=== PATIENT | female | born 1945 | race Asian ===

== ENCOUNTER 2018-01-20 17:49 | Inpatient (IN) | payer OTHER ==
[~2018-01-20] VITALS: Ht 152.4 cm; Wt 42.6 kg
[~2018-01-20 17:49] MED LIST: ASPI81CT89 PO; ATOR20TA PO; COZ50 PO; ESOM40EC PO; PIOG45TA PO; [UNRECOGNIZED DRUG - CODE] PO
[2018-01-20 18:12] VITALS: BP 117/81
--- NOTE | 2018-01-20 18:41 | NUR ---
PATIENT WHEELCHAIR ASSISTED TO BED 3.
--- NOTE | 2018-01-20 18:52 | NUR ---
PT. BIB SON W /C/O WEAKNESS X 2 DAYS AND VOMITING. PT. IS HAS EYES CLOSED BUT OPEN TO VOICE , RR EVEN AND UNLABORED. SON STATES " MY MOM SAYS SHE FEELS WEAK AND SHE HAS BEEN VOMITING X 2 DAYS BUT TODAY SHE VOMITED 4-5 TIMES". PT. HAS SKIN WARM AND DRY TO TOUCH, PT. HAS PUPILS EQUAL ROUND AND REACTIVE BILATERALLY 2MM. PT. DENIES DIAHRRHEA, PT. HAS 5/10 PAIN IN BILATERAL LEGS THAT IS NON RADIATING SINCE 2 WEEKS AGO AND DESCRIBED "DISCOMFORT". PT. HAS ESRF AND NOT IN DIALYSIS AND PER SON " HAS 33% KIDNEY FUNCTION. PT. IS AAOX2. PT. DENIES ANY ALLERGIES. DENIES CHEST PAIN, DENIES SOB, DENIES COUGH AT THIS TIME. ER MD NOTIFIED. WILL CONTINUE TO MONITOR.
--- NOTE | 2018-01-20 19:20 | NUR ---
Pt report given to HU CARTAGENA . Transfer of care at this time.
[2018-01-20 19:52] LABS: BASOPHILS % (AUTO) 0.2 % (0.0-2.0); EOSINOPHILS % (AUTO) 0.1 % (0.0-4.0); HEMATOCRIT 30.1 % (36-48); LYMPHOCYTES # (AUTO) 0.7 K/uL (2.5-16.5); LYMPHOCYTES % (AUTO) 6.6 % (20.5-51.1); MEAN CORPUSCULAR HEMOGLOBIN 30 pg (27-31); MEAN CORPUSCULAR HGB CONC 33 g/dL (33-37); MEAN CORPUSCULAR VOLUME 90.7 fL (80-94); MONOCYTES # (AUTO) 0.4 K/uL (0.8-1.0); MONOCYTES % (AUTO) 3.4 % (1.7-9.3); NEUTROPHILS # (AUTO) 9.9 K/uL (1.8-7.7); PLATELET COUNT (AUTO) 320 K/uL (140-450); RED BLOOD CELL COUNT(AUTO) 3.32 MIL/uL (4.20-5.40); RED CELL DISTRIBUTION WIDTH 13.5 % (11.6-13.7)
--- NOTE | 2018-01-20 19:55 | NUR ---
Dr. Gamez evaluating patient at bedside.
[2018-01-20 20:11] LABS: ALBUMIN 4.7 g/dL (3.4-5.0); ANION GAP 20.9 (8-16); ASPARTATE AMINOTRANSFERASE 15 U/L (15-37); CARBON DIOXIDE 21.9 mmol/L (21-32); CHLORIDE 94 mmol/L (98-107); CREATININE 1.5 mg/dL (0.6-1.3); GLUCOSE 257 mg/dL (74-106); POTASSIUM 3.8 mmol/L (3.5-5.1); SODIUM SERUM 133 mmol/L (136-145); TOTAL BILIRUBIN 0.4 mg/dL (0.0-1.0); UREA NITROGEN, BLOOD 35 mg/dL (7-18)
[2018-01-20 20:16] LABS: PROTHROMBIN TIME 10.3 secs (10.8-13.4)
[2018-01-20 20:27] LABS: NEUTROPHILS % (AUTO) 89.7 % (42.2-75.2)
[2018-01-20 20:29] LABS: AMYLASE 78 U/L (25-115); LIPASE 413 U/L (73-393)
[2018-01-20] MEDS ORDERED: NACL 0.9% 1,000 ML IV ONE (20:50)
[2018-01-20] MEDS ORDERED: PIPERACILLIN/TAZOBACTAM 3.375 GM in DEXTROSE 5% 50 ML IV ONE (20:55)
[2018-01-20 21:30] LABS: APPEARANCE,URINE CLEAR (CLEAR); BILIRUBIN,URINE NEGATIVE (NEGATIVE); BLOOD, URINE NEGATIVE (NEGATIVE); COLOR,URINE YELLOW (YELLOW); LEUKOCYTE ESTERASE ,URINE TRACE (NEGATIVE); NITRITE, URINE NEGATIVE (NEGATIVE); PH,URINE 5.5 (5.0-9.0); UGLUCOSE 2+ (NEGATIVE)
[2018-01-20] MEDS ORDERED: PIPERACILLIN/TAZOBACTAM 3.375 GM VIAL IV ONE (21:34)
[2018-01-20 22:10] LABS: RBC,URINE 0-5 (RARE) /HPF (0-5)
--- NOTE | 2018-01-20 22:16 | NUR ---
PT TAKEN TO CT
[2018-01-21] MEDS ORDERED: NACL 0.9% 1,000 ML IV ONE
--- NOTE | 2018-01-21 00:10 | NUR ---
Dr. Gamez re-evaluating patient at bedside.
[2018-01-21] MEDS ORDERED: HYDROcodone/APAP 7.5/325 MG 1 TAB PO PRN (01:05)
[2018-01-21] MEDS ORDERED: MECL-272 PO (01:05)
[2018-01-21] MEDS ORDERED: FURO-570 PO (01:05)
[2018-01-21] MEDS ORDERED: TRAM50TA1 PO (01:05)
[2018-01-21] MEDS ORDERED: DOCUSATE SODIUM 100 MG GELCAP PO PRN (01:05)
[2018-01-21] MEDS ORDERED: ONDA8ODT2 PO (01:05)
[2018-01-21] MEDS ORDERED: ACETAMINOPHEN 325 MG TAB PO PRN (01:05)
--- NOTE | 2018-01-21 01:15 | NUR ---
Dr. Johnson evaluating patient
[2018-01-21 01:28] LABS: BARBITURATE, URINE NEG. ng/ml (NEG <=200); BENZODIAZEPINE, URINE NEG. ng/mL (NEG <=200); CANNABINOID, URINE NEG. ng/mL (NEG <=50); COCAINE, URINE NEG. ng/mL (NEG <=300); OPIATE, URINE NEG. ng/mL (NEG <=2000); PHENCYCLIDINE SCREEN,URINE NEG. ng/mL (NEG <=25)
[2018-01-21 01:41] LABS: CHOL/HDL RATIO 3.6 (1-4.5); FREE T4 (FREE THYROXINE) 1.62 ng/dL (0.76-1.46); PHOSPHORUS 3.9 mg/dL (2.5-4.9); THYROID STIMULATING HORMONE 1.1 uIU/mL (0.34-3.74)
--- NOTE | 2018-01-21 01:41 | NUR ---
Patient will be admitted to care of DR. WILSON. Admited to TELE. Will go to room 121-A. Belongings list completed. Report to PIERCE.
[2018-01-21] MEDS: NACL 0.9% 1,000 ML IV SCH ×2 (01:44→12:30)
[2018-01-21 01:50] VITALS: BP 130/68
[2018-01-21 01:51] LABS: MAGNESIUM 0.9 mg/dL (1.8-2.4)
--- NOTE | 2018-01-21 01:55 | NUR ---
ADMITTED PATIENT TO THE TELE UNIT, PATIENT AWAKE ALERT, SPEAKS AZERI ONLY, HARDBOARD PRESS OPERATOR [id number] USED FOR ADMISSION ASSESSMENT. IV PATENT AND INTACT, INFUSING NS AT 100ML/HR, TELE MONITOR PLACED ON PATIENT, PLAN OF CARE DISCUSSED, PATIENT VERBALIZED UNDERSTANDING, CALL LIGHT WITHIN REACH, SAFETY MEASURE ENSURED, WILL CONTINUE TO MONITOR.
[2018-01-21] MEDS ORDERED: MECLIZINE 25 MG TAB PO PRN (02:35)
[2018-01-21] MEDS ORDERED: DEXTROSE 50% 50 ML SYR IVP PRN (02:45)
[2018-01-21] MEDS ORDERED: MAG SULF 2000 MG/WATER PREMIX 50 ML IV SCH (03:00)
[2018-01-21] MEDS ORDERED: PNEUMOCOCCAL VACCINE 23 MCG/0.5 ML VIAL IMVAC PRN (03:05)
[2018-01-21 04:00] VITALS: BP 131/69
--- NOTE | 2018-01-21 04:38 | NUR ---
PATIENT IS SLEEPING, NO S/S OF DISTRESS NOTED, RESPIRATION EVEN AND UNLABORED, ON ROOM AIR. CALL LIGHT WITHIN REACH, SAFETY MEASURE ENSURED, WILL CONTINUE TO MONITOR.
[2018-01-21] MEDS: BLOOD GLUCOSE MONITORING 1 DEV DEV FS SCH ×4 (06:05→20:47)
[2018-01-21 06:25] LABS: BASOPHILS % (AUTO) 0.2 % (0.0-2.0); EOSINOPHILS % (AUTO) 0.1 % (0.0-4.0); HEMATOCRIT 24.8 % (36-48); HEMOGLOBIN 8.3 g/dL (12.0-16.0); LYMPHOCYTES # (AUTO) 0.8 K/uL (2.5-16.5); LYMPHOCYTES % (AUTO) 9.7 % (20.5-51.1); MEAN CORPUSCULAR HEMOGLOBIN 31 pg (27-31); MEAN CORPUSCULAR HGB CONC 34 g/dL (33-37); MONOCYTES # (AUTO) 0.4 K/uL (0.8-1.0); MONOCYTES % (AUTO) 5.7 % (1.7-9.3); NEUTROPHILS # (AUTO) 6.5 K/uL (1.8-7.7); NEUTROPHILS % (AUTO) 84.3 % (42.2-75.2); PLATELET COUNT (AUTO) 256 K/uL (140-450); RED BLOOD CELL COUNT(AUTO) 2.73 MIL/uL (4.20-5.40); RED CELL DISTRIBUTION WIDTH 13.4 % (11.6-13.7); WHITE BLOOD COUNT (AUTO) 7.7 K/uL (4.8-10.8)
[2018-01-21 06:58] LABS: ANION GAP 16.6 (8-16); CARBON DIOXIDE 22.3 mmol/L (21-32); CHLORIDE 101 mmol/L (98-107); CREATININE 1.4 mg/dL (0.6-1.3); GLUCOSE 192 mg/dL (74-106); POTASSIUM 3.9 mmol/L (3.5-5.1); SODIUM SERUM 136 mmol/L (136-145); UREA NITROGEN, BLOOD 27 mg/dL (7-18)
[2018-01-21 07:00] LABS: MAGNESIUM 2.2 mg/dL (1.8-2.4); PHOSPHORUS 3.6 mg/dL (2.5-4.9)
--- NOTE | 2018-01-21 07:27 | NUR ---
ENDORSED PLAN OF CARE TO DAY SHIFT, PATIENT RESTING IN BED, IN STABLE CONDITION.
--- NOTE | 2018-01-21 07:30 | NUR ---
PATIENT AWAKE, ALERT. RESPIRATION EVEN, UNLABOR ON ROOM AIR. SKIN DRY AND WARM. IV PATENT AND INTACT. DENIED PAIN, AND DIZZINESS AT THIS TIME. NO DISTRESS NOTED. PLAN OF CARE WAS DISCUSSED WITH PATIENT. BED AT LOW POSITION, SIDE RAILS UP. CALL LIGHT WITHIN REACH
[2018-01-21] MEDS ORDERED: METOCLOPRAMIDE 10 MG/2 ML INJ VIAL IVP PRN (07:40)
[2018-01-21 08:00] VITALS: BP 123/64
[2018-01-21] MEDS ORDERED: metFORMIN 500 MG TAB PO SCH (08:00)
[2018-01-21] MEDS ORDERED: METOCLOPRAMIDE 10 MG/2 ML INJ VIAL IVP SCH (09:21)
[2018-01-21] MEDS: ASPIRIN 81 MG TAB.CHEW PO SCH (09:33)
[2018-01-21] MEDS: FUROSEMIDE 40 MG TAB PO SCH (09:33)
[2018-01-21] MEDS: ATORVASTATIN 20 MG TAB PO SCH (09:33)
[2018-01-21] MEDS: LOSARTAN 50 MG TAB PO SCH (09:34)
--- NOTE | 2018-01-21 10:29 | NUR ---
PATIENT HAS BEEN SCREENED AND CATEGORIZED HIGH NUTRITION RISK. PATIENT WILL BE SEEN WITHIN 1-2 DAYS OF ADMISSION. 01/21/18 01/22/[address]
--- NOTE | 2018-01-21 11:30 | NUR ---
PATIENT AWAKE, ALERT. RESPIRATION EVEN, UNLABOR ON ROOM AIR. VS IS STABLE. DENIED PAIN, DIZZINESS, N/V. NO DISTRES NOTED AT THIS TIME. CALL LIGHT WITHIN REACH
[2018-01-21 12:00] VITALS: BP 111/55
[2018-01-21] MEDS: METOCLOPRAMIDE 10 MG/2 ML INJ VIAL IVP SCH ×2 (12:30→20:49)
[2018-01-21] MEDS: INSULIN LISPRO SLIDING SCALE 100 UNITS/ML VIAL SUBQ PRN ×2 (12:35→21:12)
--- NOTE | 2018-01-21 14:16 | NUR ---
IV WAS ACCIDENTALLY PULLED OUT PER PATIENT. CATHETER INTACT, BLEEDING WAS CONTROLLED.
--- NOTE | 2018-01-21 14:43 | NUR ---
NEW IV WAS INSERTED TO THE RIGHT FOREARM. PATIENT TOLERATED WELL
[2018-01-21 16:00] VITALS: BP 114/56
--- NOTE | 2018-01-21 16:00 | NUR ---
PATIENT WAS SLEEPING COMFORTABLY, EASILY AROUSABLE BY NAME. RESPIRATION EVEN, UNLABOR ON ROOM AIR. DENIED PAIN, DIZZINESS AT THIS TIME. VS IS STABLE. NO DISTRESS NOTED. CALL LIGHT WITHIN REACH
--- NOTE | 2018-01-21 18:15 | NUR ---
PATIENT AWAKE, ALERT, EATING DINNER COMFORTABLY. RESPIRATION EVEN, UNLABOR ON ROOM AIR. IV PATENT AND INTACT. DENIED PAIN, SOB AT THIS TIME. NO DISTRESS NOTED. CALL LIGHT WITHIN REACH
--- NOTE | 2018-01-21 19:20 | NUR ---
ENDORSEMENT GIVEN TO THE CEMENT KILN OPERATOR NURSE. PATIENT IS STABLE AT THIS TIME
--- NOTE | 2018-01-21 19:21 | NUR ---
REPORT RECEIVED FROM AM NURSE. PT IN STABLE CONDITION. INTRODUCED MYSELF TO PT. AAOX4. LUNG SOUNDS CLEAR BILATERALLY. HEART SOUNDS S1 S2 NORMAL. BOWEL SOUNDS ACTIVE X4 QUADRANTS. CAP REFILL < 3S. SKIN INTACT, DRY AND WARM. IV SITE PATENT AND INTACT. PT NOT IN ANY ACUTE DISTRESS. WILL CONTINUE TO MONITOR.
[2018-01-21 20:00] VITALS: BP 113/47
--- NOTE | 2018-01-21 20:00 | NUR ---
PM MEDS GIVEN. PT TOLERATED WELL.
--- NOTE | 2018-01-21 22:30 | NUR ---
USED BLUE PHONE FOR PLANT TECHNICIAN. PT ASKED ABOUT THE IV BAGS THAT WERE HANGING. PT WAS INFORMED THAT THOSE IV BAGS WERE NO LONGER NEEDED FOR TODAY AND WILL HAVE ANOTHER DOSE TOMORROW.
--- NOTE | 2018-01-22 | NUR ---
ATTEMPTED TO GET VITALS FROM PT. PT REFUSED BY PULLING ARM AWAY WHEN ATTEMPTING TO PUT ON THE BLOOD PRESSURE CUFF. WILL ATTEMPT AGAIN FOR 0400 VITALS.
--- NOTE | 2018-01-22 02:00 | NUR ---
PT UP OUT OF BED TO THE RESTROOM. HELPED BACK TO BED AND WENT TO SLEEP. WILL CONTINUE TO MONITOR.
[2018-01-22] MEDS: NACL 0.9% 1,000 ML IV SCH ×2 (02:47→20:14)
--- NOTE | 2018-01-22 03:50 | NUR ---
YESSICA PULLED OUT OF PYXIS AND ATTEMPTED TO GIVE TO PT. PT REFUSED MEDICATION AFTER IT WAS OPENED. MARY GARRETT STATED JUST TO WASTE. THROWN INTO RX WASTE BASKET IN MED ROOM.
[2018-01-22] MEDS ORDERED: diphenhydrAMINE 50 MG/ML VIAL IVP SCH (04:00)
[2018-01-22] MEDS ORDERED: OLANZapine 5 MG TAB PO SCH (04:00)
--- NOTE | 2018-01-22 04:00 | NUR ---
PT UP OUT OF BED CONFUSED. UNABLE TO UNDERSTAND DUE TO LANGUAGE BARRIER. PT GATHERING BELONGINGS AND NOT WANTING TO GO BACK TO BED. WILL CONSULT MD.
--- NOTE | 2018-01-22 04:15 | NUR ---
CALLED SON THEA AT [phone] TO HAVE HIM SPEAK TO HIS MOTHER TO GET HER SITUATED. PT VERBALIZED UNDERSTANDING.
--- NOTE | 2018-01-22 04:22 | NUR ---
BENADRYL GIVEN. PT TOLERATED WELL. WILL CONTINUE TO MONITOR.
[2018-01-22] MEDS: BLOOD GLUCOSE MONITORING 1 DEV DEV FS SCH ×4 (05:49→20:26)
[2018-01-22] MEDS: METOCLOPRAMIDE 10 MG/2 ML INJ VIAL IVP SCH ×3 (05:50→20:26)
[2018-01-22] MEDS: INSULIN LISPRO SLIDING SCALE 100 UNITS/ML VIAL SUBQ PRN ×3 (05:57→20:37)
[2018-01-22 06:20] LABS: T4 (THYROXINE) 12.2 ug/dL (4.5-12.0)
[2018-01-22 06:34] LABS: BASOPHILS % (AUTO) 0.6 % (0.0-2.0); EOSINOPHILS # (AUTO) 0.1 K/uL (0-0.4); EOSINOPHILS % (AUTO) 2.1 % (0.0-4.0); HEMOGLOBIN 8.1 g/dL (12.0-16.0); LYMPHOCYTES # (AUTO) 1.1 K/uL (2.5-16.5); LYMPHOCYTES % (AUTO) 15.3 % (20.5-51.1); MEAN CORPUSCULAR HEMOGLOBIN 31 pg (27-31); MEAN CORPUSCULAR HGB CONC 34 g/dL (33-37); MEAN CORPUSCULAR VOLUME 91.4 fL (80-94); MONOCYTES # (AUTO) 0.5 K/uL (0.8-1.0); MONOCYTES % (AUTO) 6.7 % (1.7-9.3); NEUTROPHILS # (AUTO) 5.2 K/uL (1.8-7.7); NEUTROPHILS % (AUTO) 75.3 % (42.2-75.2); PLATELET COUNT (AUTO) 250 K/uL (140-450); RED BLOOD CELL COUNT(AUTO) 2.63 MIL/uL (4.20-5.40); RED CELL DISTRIBUTION WIDTH 13.5 % (11.6-13.7); WHITE BLOOD COUNT (AUTO) 6.9 K/uL (4.8-10.8)
[2018-01-22 06:49] LABS: ANION GAP 16.3 (8-16); CARBON DIOXIDE 21.8 mmol/L (21-32); CHLORIDE 103 mmol/L (98-107); CREATININE 1.2 mg/dL (0.6-1.3); GLUCOSE 271 mg/dL (74-106); POTASSIUM 3.1 mmol/L (3.5-5.1); SODIUM SERUM 138 mmol/L (136-145); UREA NITROGEN, BLOOD 25 mg/dL (7-18)
[2018-01-22 06:50] LABS: PHOSPHORUS 4.5 mg/dL (2.5-4.9)
--- NOTE | 2018-01-22 07:05 | NUR ---
REPORT GIVEN TO AM NURSE. PT IN STABLE CONDITION.
[2018-01-22 07:11] LABS: MAGNESIUM 1.5 mg/dL (1.8-2.4)
--- NOTE | 2018-01-22 07:30 | NUR ---
PATIENT AWAKE, ALERT. RESPIRATION EVEN, UNLABOR ON ROOM AIR. SKIN DRY AND WARM. LUNGS CLEAR THROUGHOUT. BOWEL ACTIVE 4 QUADRANTS. REGULAR CARDIAC RHYTHM. DENIED PAIN, DIZZINESS, SOB. IV PATENT AND INTACT. NO DISTRESS NOTED. PLAN OF CARE WAS DISCUSSED WITH PATIENT. BED AT LOW POSITION, SIDE RAILS UP. CALL LIGHT WITHIN REACH.
[2018-01-22 08:00] VITALS: BP 125/60
[2018-01-22] MEDS: LOSARTAN 50 MG TAB PO SCH (08:30)
[2018-01-22] MEDS: ATORVASTATIN 20 MG TAB PO SCH (08:30)
[2018-01-22] MEDS ORDERED: MAG SULF 2000 MG/WATER PREMIX 50 ML IV SCH ×2 (08:30→11:00)
[2018-01-22] MEDS: FUROSEMIDE 40 MG TAB PO SCH (08:30)
[2018-01-22] MEDS: ASPIRIN 81 MG TAB.CHEW PO SCH (08:31)
[2018-01-22] MEDS ORDERED: LISINOPRIL 5 MG TAB PO SCH (09:00)
[2018-01-22] MEDS ORDERED: metFORMIN 850 MG TAB PO SCH (10:38)
--- NOTE | 2018-01-22 11:52 | NUR ---
PATIENT AWAKE, ALERT. RESPIRATION EVEN, UNLABOR ON ROOM AIR. SKIN DRY AND WARM. VS IS STABLE. DENIED PAIN AT THIS TIME. NO DISTRESS NOTED. FAMILY AT BEDSIDE. CALL LIGHT WITHIN REACH
[2018-01-22 12:00] VITALS: BP 132/66
[2018-01-22] MEDS ORDERED: POTASSIUM CHLORIDE 10 MEQ TABER PO SCH (13:00)
--- NOTE | 2018-01-22 13:57 | NUR ---
ENDORSEMENT GIVEN TO SERAFIN GARRETT, FOR CONTINUITY OF CARE. PATIENT IS STABLE AT THIS TIME
--- NOTE | 2018-01-22 14:03 | NUR ---
RECEIVED PT FROM NURSECARTER, PT IS AWAKE AND SEATED ON A CHAIR BEING ASSISTED BY THE EMERGENCY MEDICAL TECH WITH AN IV LINE RT FA G.22 WITH NS AT 80ML/HR. NO SIGN OF DISTRESS NOTED AND WILL CONTINUE TO MONITOR.
--- NOTE | 2018-01-22 14:05 | NUR ---
PT IS SEEN WALKING IN THE HALLWAY WITH THE PT ALBERT PICKENS. NO SIGN OF DISTRESS NOTED. WILL CONTINUE TO MONITOR.
[2018-01-22] MEDS ORDERED: INSULIN LANTUS 100 UNITS/ML 10 ML VIAL SUBQ SCH ×2 (14:15→21:00)
--- NOTE | 2018-01-22 15:01 | NUR ---
01/22/18 RD INITIAL ASSESSMENT COMPLETED PLEASE REFER TO NUTRITION ASSESSMENT UNDER CARE ACTIVITY FOR ESTIMATED NUTRITIONAL NEEDS. 1. RECOMMEND RENAL DIET IN ADDITION TO CCHO [address] TO FOLLOW-UP 2-3 DAYS, HIGH RISK NASIM RAYMUNDO RD
--- NOTE | 2018-01-22 16:15 | NUR ---
PT IS AWAKE AND LYING ON THE BED, BLOOD GLUCOSE CHECK DONE AND MEDICATIONS GIVEN. PT TOLERATED IT AND NO SIGN OF DISTRESS NOTED, WILL MONITOR.
[2018-01-22] MEDS: metFORMIN 850 MG TAB PO SCH (16:42)
--- NOTE | 2018-01-22 16:59 | NUR ---
Pelt Inspector Note: I called and spoke with patient's son Scotty Chambers regarding MD's order for home health for physical therapy. Per Scotty, he is planning to come to visit patient at hospital tomorrow around 8:10am and would like to meet with me. He stated he is planning to stay for about 2 hours. I will follow up with Scotty tomorrow.
--- NOTE | 2018-01-22 19:30 | NUR ---
ENDORSED PT TO TETRYL SCREEN OPERATOR NURSE, PIEDAD, FOR CONTINUITY OF CARE. PT IS STABLE AT THIS TIME.
--- NOTE | 2018-01-22 19:35 | NUR ---
RECEIVED PT IN STABLE CONDITION FROM AM NURSE. PT IS MED SURG . AWAKE,ALERT BUT WITH CONFUSION. NO S/S OF ANY DISCOMFORT NOR PAIN NOTED. HAS IVF INFUSING WELL ON THE RT FA#22. CLEAR AND PATENT. TRIED TO ORIENT PT TO ROOM , NEED REINFORCEMENT. BED ON LOW POSITION, FREQUENT ROUNDS /CHECK NEEDED DUE TO CONFUSION. CALL LIGHT PLACED WITHIN EASY REACH. WILL CONITNUE TO MONITOR.
[2018-01-22] MEDS: POTASSIUM CHLORIDE 10 MEQ TABER PO SCH (20:27)
--- NOTE | 2018-01-22 20:37 | NUR ---
BLOOD SUGAR WAS CHECKED . RESULT 250. INSULIN COVERAGE GIVEN. PROVIDED WITH SOME SNACK. WILL CONITNUE TO MONITOR.
--- NOTE | 2018-01-22 21:30 | NUR ---
ASSISTED TO BATHROOM . VOIDED WELL. BACK TO BED. REPOSITIONED WELL. IVF INFUSING WELL ON RT FA#22.
[2018-01-22 23:30] VITALS: BP 133/62
--- NOTE | 2018-01-22 23:30 | NUR ---
ASSISTED UP AGAIN UP TO THE BATHROOM. NO C/O ANY DISCOMFORT NOTED.
--- NOTE | 2018-01-23 00:30 | NUR ---
MADE ROUNDS. ASLEEP. NO S/S OF ANY DISTRESS NOTED.
[2018-01-23] MEDS: NACL 0.9% 1,000 ML IV SCH (02:02)
--- NOTE | 2018-01-23 02:45 | NUR ---
MADE ROUNDS. PT IS ASLEEP. NO S/S OF ANY DISCOMFORT NOTED .
--- NOTE | 2018-01-23 04:30 | NUR ---
PT ASLEEP. NO S/S OF ANY DISCOMFORT NOTED.
[2018-01-23] MEDS: METOCLOPRAMIDE 10 MG/2 ML INJ VIAL IVP SCH (04:34)
[2018-01-23] MEDS: BLOOD GLUCOSE MONITORING 1 DEV DEV FS SCH ×2 (06:08→11:30)
--- NOTE | 2018-01-23 06:11 | NUR ---
BLOOD SUGAR THIS AM 88. HAD SOME DRINK OF MILK.
[2018-01-23 06:25] LABS: BASOPHILS % (AUTO) 0.6 % (0.0-2.0); EOSINOPHILS # (AUTO) 0.1 K/uL (0-0.4); EOSINOPHILS % (AUTO) 2.2 % (0.0-4.0); HEMATOCRIT 24.1 % (36-48); HEMOGLOBIN 8.2 g/dL (12.0-16.0); LYMPHOCYTES % (AUTO) 30.3 % (20.5-51.1); MEAN CORPUSCULAR HEMOGLOBIN 31 pg (27-31); MEAN CORPUSCULAR HGB CONC 34 g/dL (33-37); MEAN CORPUSCULAR VOLUME 91.2 fL (80-94); MONOCYTES # (AUTO) 0.4 K/uL (0.8-1.0); MONOCYTES % (AUTO) 6.4 % (1.7-9.3); NEUTROPHILS # (AUTO) 4.1 K/uL (1.8-7.7); NEUTROPHILS % (AUTO) 60.5 % (42.2-75.2); PLATELET COUNT (AUTO) 280 K/uL (140-450); RED BLOOD CELL COUNT(AUTO) 2.64 MIL/uL (4.20-5.40); RED CELL DISTRIBUTION WIDTH 13.4 % (11.6-13.7); WHITE BLOOD COUNT (AUTO) 6.7 K/uL (4.8-10.8)
[2018-01-23 06:47] LABS: ANION GAP 13.2 (8-16); CARBON DIOXIDE 22.8 mmol/L (21-32); CHLORIDE 108 mmol/L (98-107); GLUCOSE 99 mg/dL (74-106); SODIUM SERUM 140 mmol/L (136-145); UREA NITROGEN, BLOOD 23 mg/dL (7-18)
[2018-01-23 06:58] LABS: MAGNESIUM 1.8 mg/dL (1.8-2.4)
--- NOTE | 2018-01-23 07:17 | NUR ---
ENDORSED PT IN STABLE CONDITION TO AM NURSE.
--- NOTE | 2018-01-23 07:18 | NUR ---
REPORT RECEIVED FROM CHEMICAL LAB SUPERVISOR NURSE AT BEDSIDE FOR CONTINUITY OF CARE. PATIENT AOX3, SPEAKS ICELANDIC ONLY. RESPIRATIONS EVEN AND UNLABORED, DENIES PAIN AT THIS TIME. IV TO R FA INTACT, PATENT, AND ASYMPTOMATIC, INFUSING NS AT 30 ML/HR. UPDATED BOARD, UPDATED PATIENT WITH PLAN OF CARE FOR THE DAY, PATIENT VERBALIZED UNDERSTANDING. SAFETY PRECAUTION IN PLACE, CALL LIGHT WITHIN REACH. WILL CONTINUE TO MONITOR PATIENT.
[2018-01-23 08:00] VITALS: BP 132/67
--- NOTE | 2018-01-23 08:28 | NUR ---
DOCTORS MAKING THEIR ROUNDS, PATIENT'S SON AT BEDSIDE. WILL AWAIT FOR NEW ORDERS.
[2018-01-23] MEDS: LOSARTAN 50 MG TAB PO SCH (08:48)
[2018-01-23] MEDS: ASPIRIN 81 MG TAB.CHEW PO SCH (08:48)
[2018-01-23] MEDS: POTASSIUM CHLORIDE 10 MEQ TABER PO SCH (08:49)
[2018-01-23] MEDS: metFORMIN 850 MG TAB PO SCH (08:49)
[2018-01-23] MEDS: ATORVASTATIN 20 MG TAB PO SCH (08:49)
[2018-01-23] MEDS ORDERED: POTASSIUM CHLORIDE 10 MEQ TABER PO SCH (09:00)
--- NOTE | 2018-01-23 09:02 | NUR ---
GAVE KAITLYN FROM [employer] A CALL BECAUSE PATIENT'S ON IS AT BEDSIDE AND HE SAID SOMEONE FROM [employer] [facility] MADE AN APPOINTMENT TO SPEAK TO HIM THIS MORNING AT 0830. LEFT VOICEMAIL. WILL FOLLOW UP.
--- NOTE | 2018-01-23 09:25 | NUR ---
PHYSICAL THERAPY IN TO WORK WITH PATIENT. WILL AWAIT FOR HIS EVALUATION. Addendum: 01/23/18 at 0954 by Doroteo Daniels RN PATIENT AMBULATED WITH ASSIST WITH PHYSICAL THERAPISTERICA, OUT OF BED, AND DOWN THE CHEN FROM HER ROOM, AND BACK TO HER ROOM.
[2018-01-23] MEDS ORDERED: METF850T PO (10:36)
[2018-01-23] MEDS ORDERED: GLUC-805 FS (10:36)
[2018-01-23] MEDS ORDERED: LANTUS SUBQ (10:36)
--- NOTE | 2018-01-23 10:59 | NUR ---
DISCHARGE ORDER IN, PATIENT AWARE. PNEUMONIA VACCINE GIVEN IM. PATIENT TOLERATED IT. INFORMED PATIENT THAT RN WILL BEGIN DISCHARGE PAPERWORK. PATIENT AND FAMILY MEMBER VERBALIZED UNDERSTANDING.
--- NOTE | 2018-01-23 11:40 | NUR ---
DISCHARGE INSTRUCTIONS ABOUT DOCTOR'S APPOINTMENT AND FOLLOW UP WITH CHIMNEY MECHANIC, PATIENT'S NEW MEDICATIONS, AND EDUCATION GIVEN. PATIENT AND HER VERBALIZED UNDERSTANDING. IV REMOVED, IV CATHETER INTACT, MINIMAL BLOOD NOTED. NO SIDE EFFECTS FROM PNEUMONIA VACCINE NOTED. ID BANDS REMOVED. PATIENT WILL NOW GET CHANGED AND GET READY TO BE DISCHARGED. WILL CONTINUE TO MONITOR PATIENT.
--- NOTE | 2018-01-23 11:55 | NUR ---
BLOOD SUGAR 158, PATIENT REFUSED INSULIN COVERAGE BECAUSE SHE IS GOING HOME. LUNCH ARRIVED, PATIENT IS EATING LUNCH AND WILL BE DISCHARGED OFF THE FLOOR ONCE SHE IS DONE WITH HER LUNCH.
--- NOTE | 2018-01-23 12:15 | NUR ---
PATIENT WHEELED OFF FLOOR ACCOMPANIED BY HER AND RN. PATIENT TOOK ALL HER BELONGINGS WITH HER. PATIENT IN STABLE CONDITION.
--- NOTE | 2018-01-23 14:00 | NUR ---
Customer Liaison Note: Note for earlier today: I met with patient and patient's son Scotty Chambers at bedside. Patient Libyan speaking only. Scotty speaks limited Cuban. Per Scotty, patient lives at home with her and Scotty. He reported he assist patient with ADLs at home when he is home, he reported he is currently employed. He stated he is in agreement with home health services for physical therapy, he requested for a Libyan speaking physical therapist. He inquired information about home care for patient. I provided him with information on [facility] , a program for older adults who need home care, transportation, DMEs, or home health services. He was appreciative. Per Scotty, patient's home address is [address] [place] [phone], phone number for Scotty, . I offered to [facility] and inform liaison/order entry representative patient/patient's family is interested in program, Scotty in agreement. I called and spoke with Darlene Leal from [facility] / and informed her patient/patient's family is interested in program. Per Darlene, one of their representatives will contact patient's son Scotty and provide him information about program in Libyan. I called and spoke with Laila at [facility] , they do not have a Libyan speaking physical therapist. I called and spoke with Consuelo at [facility] , they do not have a Libyan speaking physical therapist. Per Jessica from [facility] , they don't have a Libyan speaking physical therapist. Per Heide from [facility] , they don't have a Libyan speaking physical therapist. Per Kary from [facility] , fax , they can accept patient and they are able to communicate with patient in Libyan using their gauge maker apprentice phone service. per Kary, they will send a physical therapist to patient's home on either or Sunday.
--- NOTE | 2018-01-23 14:11 | NUR ---
PHYSICAL THERAPY CO-SIGN The Physical Therapy Progress Notes documented by Information Technology Audit Manager have been reviewed. Reviewed/Co-Signed by: Lewis Baez PT Documentation Done by: ERICA BOWERS RESIDENTIAL COORDINATOR PATIENT SHOWING STEADY GAINS TOWARDS REHAB GOALS. Addendum: 01/23/18 at 1411 by Lewis Baez PT Amended: Links added.
[2018-01-23 15:09] LABS: FOLIC ACID 14.4 ng/mL (>3.0)
[2018-01-23] MEDS ORDERED: INSULIN LANTUS 100 UNITS/ML 10 ML VIAL SUBQ SCH (21:00)
== END 2018-01-23 12:15 | disposition home or self-care (01) | DRG 682 ==
LOC: MED 17:49 → MTU 01-21 01:04
PROVIDERS: ADMIT General Practice; ATTEND General Practice
DX: N17.0 Acute kidney failure with tubular necrosis (principal); G93.41 Metabolic encephalopathy; D68.59 Other primary thrombophilia; N39.0 Urinary tract infection, site not specified; I12.0 Hypertensive chronic kidney disease with stage 5 chronic kidney disease or end stage renal disease; G90.9 Disorder of the autonomic nervous system, unspecified; N18.6 End stage renal disease; E11.65 Type 2 diabetes mellitus with hyperglycemia; E11.22 Type 2 diabetes mellitus with diabetic chronic kidney disease; K31.84 Gastroparesis; E11.69 Type 2 diabetes mellitus with other specified complication; E11.43 Type 2 diabetes mellitus with diabetic autonomic (poly)neuropathy; E83.42 Hypomagnesemia; H81.10 Benign paroxysmal vertigo, unspecified ear; K52.9 Noninfective gastroenteritis and colitis, unspecified; D64.9 Anemia, unspecified; E87.6 Hypokalemia
CPT/HCPCS: 36415; 70450; 71045; 76705; 80048; 80053; 80305; 81001; 82150; 82550; 82553; 82607; 82728; 82746; 82948; 83036; 83540; 83605; 83690; 83735; 83880; 84100; 84436; 84439; 84443; 84479; 84484; 85025; 85045; 85610; 85730; 87040; 87081; 87086; 90732; 93005; 93880; 93925; 93970; 96365; 97110; 97116; 97140; 97530; 99291; J0696; J1200; J1815; J2543; J2765; J3475; J7030; J7060; Q0092

== ENCOUNTER 2018-01-30 14:25 | Emergency (ER) | payer OTHER ==
[~2018-01-30] VITALS: Ht 160 cm; Wt 64.0 kg
[~2018-01-30 14:25] MED LIST changes: +FURO-570 PO; +GLUC-805 FS; +LANTUS SUBQ; +MECL-272 PO; +METF850T PO; +ONDA8ODT2 PO; +TRAM50TA1 PO
[2018-01-30 14:29] VITALS: BP 87/31
[2018-01-30] MEDS ORDERED: NACL 0.9% 1,000 ML IV SCH ×2 (14:37→16:30)
[2018-01-30 15:18] LABS: BASOPHILS # (AUTO) 0.1 K/uL (0.00-0.22); BASOPHILS % (AUTO) 0.7 % (0.0-2.0); EOSINOPHILS # (AUTO) 0.1 K/uL (0-0.4); EOSINOPHILS % (AUTO) 0.3 % (0.0-4.0); HEMOGLOBIN 8.3 g/dL (12.0-16.0); LYMPHOCYTES # (AUTO) 5.4 K/uL (2.5-16.5); LYMPHOCYTES % (AUTO) 24.9 % (20.5-51.1); MEAN CORPUSCULAR HEMOGLOBIN 30 pg (27-31); MEAN CORPUSCULAR HGB CONC 27 g/dL (33-37); MONOCYTES # (AUTO) 2.6 K/uL (0.8-1.0); NEUTROPHILS # (AUTO) 13.5 K/uL (1.8-7.7); NEUTROPHILS % (AUTO) 62.1 % (42.2-75.2); PLATELET COUNT (AUTO) 369 K/uL (140-450); RED BLOOD CELL COUNT(AUTO) 2.78 MIL/uL (4.20-5.40); RED CELL DISTRIBUTION WIDTH 14.5 % (11.6-13.7); WHITE BLOOD COUNT (AUTO) 21.7 K/uL (4.8-10.8)
[2018-01-30 15:31] LABS: PROTHROMBIN TIME 12.6 secs (10.8-13.4)
[2018-01-30 15:34] LABS: BILIRUBIN,URINE NEGATIVE (NEGATIVE); BLOOD, URINE TRACE-L (NEGATIVE); COLOR,URINE YELLOW (YELLOW); LEUKOCYTE ESTERASE ,URINE NEGATIVE (NEGATIVE); NITRITE, URINE NEGATIVE (NEGATIVE); PH,URINE 5.5 (5.0-9.0); UGLUCOSE NEGATIVE (NEGATIVE)
[2018-01-30 15:40] LABS: ALBUMIN 2.9 g/dL (3.4-5.0); ASPARTATE AMINOTRANSFERASE 245 U/L (15-37); CHLORIDE 94 mmol/L (98-107); GLUCOSE 240 mg/dL (74-106); SODIUM SERUM 135 mmol/L (136-145); TOTAL BILIRUBIN 0.2 mg/dL (0.0-1.0)
[2018-01-30] MEDS ORDERED: NACL 0.9% 1,000 ML IV ONE ×2 (15:40→16:45)
[2018-01-30] MEDS ORDERED: EPINEPHrine PFS 0.1 MG/ML SYR IVP ONE ×5 (16:15)
[2018-01-30] MEDS ORDERED: CALCIUM CHLORIDE 10% 100 MG/ML SYR IVP ONE (16:15)
[2018-01-30] MEDS ORDERED: DEXTROSE 25% 10 ML SYR IVP ONE (16:15)
[2018-01-30] MEDS ORDERED: SODIUM BICARBONATE 8.4% PFS 50 MEQ/50 ML SYR IVP ONE (16:15)
[2018-01-30 16:20] VITALS: BP 161/74
[2018-01-30 16:22] LABS: MEAN CORPUSCULAR VOLUME 111.4 fL (80-94)
[2018-01-30 16:23] LABS: ANION GAP 44.2 (8-16)
[2018-01-30 16:24] LABS: POTASSIUM 6.8 mmol/L (3.5-5.1)
[2018-01-30 16:25] LABS: CARBON DIOXIDE 3.6 mmol/L (21-32)
[2018-01-30 16:27] LABS: CREATININE 7.6 mg/dL (0.6-1.3); UREA NITROGEN, BLOOD 97 mg/dL (7-18)
[2018-01-30] MEDS ORDERED: ACETAMINOPHEN 325 MG TAB PO PRN (16:30)
[2018-01-30] MEDS ORDERED: DOCUSATE SODIUM 100 MG GELCAP PO PRN (16:30)
[2018-01-30] MEDS ORDERED: BISACODYL 5 MG TABEC PO PRN (16:30)
[2018-01-30] MEDS ORDERED: LORazepam 50 MG in NACL 0.9% 25 ML IV PRN (16:35)
[2018-01-30 16:55] LABS: APPEARANCE,URINE HAZY (CLEAR)
[2018-01-30 16:56] LABS: RBC,URINE 3-10 (FEW) /HPF (0-5)
[2018-01-30 16:57] LABS: URINE AMORPHOUS URATE 2+ /HPF (None Seen); WBC,URINE 0-5 (RARE) /HPF (0-5)
[2018-01-30 17:38] LABS: FREE T4 (FREE THYROXINE) 0.96 ng/dL (0.76-1.46); MAGNESIUM 2.2 mg/dL (1.8-2.4); THYROID STIMULATING HORMONE 1.42 uIU/mL (0.34-3.74)
[2018-01-30 17:42] LABS: PHOSPHORUS 17.3 mg/dL (2.5-4.9)
[2018-01-30 18:07] VITALS: BP 48/25
[2018-01-30] MEDS ORDERED: EPINEPHrine 1:1000 6 MG in DEXTROSE 5% 250 ML IV STA (18:30)
[2018-01-30 18:45] VITALS: BP 0/0
[2018-01-31] MEDS ORDERED: PANTOPRAZOLE 40 MG INJ VIAL IVP SCH (09:00)
== END 2018-01-31 02:02 | disposition expired ==
LOC: MED 14:25 → MIC 16:42 → UNDOADMIN 16:42 → MED 01-31 02:02
DX: I46.9 Cardiac arrest, cause unspecified (principal); E11.649 Type 2 diabetes mellitus with hypoglycemia without coma; M54.9 Dorsalgia, unspecified; I10 Essential (primary) hypertension; Z79.82 Long term (current) use of aspirin; Z79.4 Long term (current) use of insulin; Z79.899 Other long term (current) drug therapy
CPT/HCPCS: 31500; 36415; 36600; 71045; 80053; 81001; 82150; 82550; 82803; 83605; 83690; 83735; 83880; 84100; 84439; 84443; 84479; 84484; 85025; 85610; 85730; 87040; 87086; 92950; 93005; 96361; 96365; 96375; 99291; C1758; J0171; J7060; Q0092